=== PATIENT | male | born 1995 | race Caucasian/White ===

== ENCOUNTER 2021-05-21 11:35 | Inpatient (IN) | payer OTHER, BC ==
[~2021-05-21] VITALS: Ht 182.9 cm; Wt 112.8 kg
[2021-05-21 12:00] VITALS: BP 127/63
[2021-05-21] MEDS ORDERED: LISI20TA18 PO (12:06)
[2021-05-21] MEDS ORDERED: ESCITALOPRAM OX20 MG PO (12:29)
[2021-05-21] MEDS ORDERED: VANCOMYCIN PER PHARMACY MC PRN (12:30)
--- NOTE | 2021-05-21 12:30 | HP ---
DATE OF SERVICE: 05/21/2021 ADMIT DATE: 05/21/2021 HISTORY OF PRESENT ILLNESS: The patient is a 25-year-old male patient who was admitted directly from the urgent care clinic of [facility] where he presented with a complaint of pain around his perianal area. He was seen by his primary care physician, started him on oral Bactrim. He took it for 2 days; however, the pain and swelling has worsened and therefore, he was seen in the urgent clinic and I recommended to admit him directly to [facility] to consult the surgical team as he probably needs an incision and drainage of his perianal abscess. All his symptoms started about 3 days ago, specifically on and has been worsening. He denied any nausea or vomiting. Denied any chills, rigors or fever. PAST MEDICAL HISTORY: Significant for hypertension, depression and anxiety. PAST SURGICAL HISTORY: Unremarkable. ALLERGIES: QUESTIONABLE ALLERGY TO PENICILLIN. FAMILY HISTORY: Unremarkable. MEDICATIONS: He is currently on the following medication: He is on Lexapro 20 mg once a day, trazodone 100 mg at bedtime and lisinopril 20 mg once a day. SOCIAL HISTORY: He is single, has no children. He is vaping. He has not drank alcohol for almost a month and smokes marijuana occasionally, but does not use any other drugs. He is a Medicare Advantage Agent. REVIEW OF SYSTEMS: As per history of present illness. PHYSICAL EXAMINATION: GENERAL: On arrival, he looked well and was clearly in no apparent respiratory distress. No pallor, jaundice, cyanosis or thyromegaly. No jugular venous distention. No lower limb edema. VITAL SIGNS: Stable. HEAD, EYES, EARS, NOSE, AND THROAT: Normocephalic, atraumatic. NECK: Supple. HEART: Normal first and second heart sounds, no gallop or murmur. CHEST: Clear to auscultation, no crepitation or rhonchi. ABDOMEN: Distended, soft, nontender. NEUROLOGIC: He was grossly intact. EXTREMITIES: Examination of the perianal area showed that he had an abscess on the left side with marked tenderness and induration. PLAN: My plan is to start him on IV fluid, IV antibiotics and pain medication and consult the surgical team for incision and drainage. JUSTIN/VINICIUS DR: JUSTIN/deuce TID: [id number]
[2021-05-21 12:56] LABS: BASO # 0.1 x10^3/uL (0.0-0.2); BASO % 1 % (0-3); EOS % 0 % (0-3); HEMATOCRIT 41.9 % (39.0-53.0); HEMOGLOBIN 14.4 g/dL (13.0-17.5); LYMPH # 1.9 x10^3/uL (1.0-4.8); LYMPH % 13 % (24-48); MEAN CORPUSCULAR HEMOGLOBIN 29 pg (25-35); MEAN CORPUSCULAR HGB CONC 34 g/dL (31-37); MEAN CORPUSCULAR VOLUME 84 fL (79-100); MONO # 1.2 x10^3/uL (0.0-1.1); MONO % 8 % (0-9); NEUT # 11.2 x10^3/uL (1.8-7.7); NEUT % 78 % (31-73); PLATELET COUNT 268 x10^3/uL (140-400); RED CELL DISTRIBUTION WIDTH 12.7 % (11.5-14.5); WHITE BLOOD COUNT 14.4 x10^3/uL (4.0-11.0)
[2021-05-21] MEDS ORDERED: VANCOMYCIN 2 GM in IV NORMAL SALINE 500ML BAG 500 ML IV ONE (13:00)
[2021-05-21] MEDS: IV RINGERS,LACTATED 1000ML 1,000 ML IV SCH ×2 (13:06→22:55)
[2021-05-21 13:07] LABS: CALCIUM 8.6 mg/dL (8.5-10.1); CREATININE 1.1 mg/dL (0.7-1.3); POTASSIUM 4.6 mmol/L (3.5-5.1)
[2021-05-21 13:09] LABS: ALBUMIN 3.7 g/dL (3.4-5.0); ALBUMIN/GLOBULIN RATIO 1.3 (1.0-1.7); TOTAL BILIRUBIN 0.6 mg/dL (0.2-1.0); TOTAL PROTEIN 6.5 g/dL (6.4-8.2)
[2021-05-21] MEDS ORDERED: CONTRAST GIVEN. MC PRN (13:30)
[2021-05-21] MEDS ORDERED: IOHEXOL 300 MG/ML 100ML VIAL. IV ONE (13:30)
[2021-05-21] MEDS ORDERED: MEROPENEM 1 GM in IV NORMAL SALINE 100ML 100 ML IV SCH (14:00)
[2021-05-21] MEDS: MORPHINE SULFATE 4 MG/ML INJ. IV PRN ×3 (14:16→23:12)
[2021-05-21] MEDS: ONDANSETRON PF 4 MG/2 ML VIAL. IVP PRN ×3 (14:16→22:55)
[2021-05-21] MEDS: CEFEPIME HCL IV Push 2 GM VIAL. IVP SCH ×2 (15:47→22:56)
--- NOTE | 2021-05-21 16:45 | PDOC2 ---
CONSULT Date of Consult Date of Consult DATE: 05/21/21 TIME: 16:42 Reason for Consult Reason for Consult: Gluteal pain cellulitis Referring Physician Referring Physician: Cristóbal Identification/Chief Complaint Chief Complaint Gluteal pain Source Source: Chart review, Patient History of Present Illness Reason for Visit: 25-year-old male with 3-day history of gluteal pain was seen by primary care started on Bactrim pain became worse was seen in urgent care and referred for admission for possible incision and drainage of perirectal abscess. Patient denies diabetes denies ever having a problem like this in the past no drainage from the area Past Medical History Cardiovascular: No pertinent hx Pulmonary: No pertinent hx GI: No pertinent hx Heme/Onc: No pertinent hx Hepatobiliary: No pertinent hx Psych: No pertinent hx Rheumatologic: No pertinent hx Infectious disease: No pertinent hx ENT: No pertinent hx Renal/: No pertinent hx Endocrine: No pertinent hx Dermatology: No pertinent hx Past Surgical History Past Surgical History: No pertinent history Family History Family History: No Significant Social History No ALCOHOL: rare Drugs: None Lives: with Family Current Medications Current Medications Current Medications Morphine Sulfate (Morphine Sulfate) 4 mg PRN Q4HRS PRN IV MODERATE TO SEVERE PAIN Last administered on 05/21/21at 14:16; Start 05/21/21 at 12:30 Ondansetron HCl (Zofran) 4 mg PRN Q4HRS PRN IVP NAUSEA/VOMITING Last administered on 05/21/21at 14:16; Start 05/21/21 at 12:30 Meropenem 1 gm/ Sodium Chloride 100 ml @ 200 mls/hr Q8HRS IV ; Start 05/21/21 at 14:00; Stop 05/21/21 at 13:16; Status DC Vancomycin HCl (Vanco Per Pharmacy) 1 each PRN DAILY PRN MC SEE COMMENTS; Start 05/21/21 at 12:30; Stop 05/21/21 at 13:16; Status DC Ringer's Solution 1,000 ml @ 100 mls/hr Q10H IV Last administered on 05/21/21at 13:06; Start 05/21/21 at 12:30 Vancomycin HCl 2 gm/Sodium Chloride 500 ml @ 250 mls/hr 1X ONCE IV Last administered on 05/21/21at 13:07; Start 05/21/21 at 13:00; Stop 05/21/21 at 13:16; Status DC Metronidazole 100 ml @ 100 mls/hr Q8HRS IV Last administered on 05/21/21at 14:14; Start 05/21/21 at 14:00 Cefepime HCl (Maxipime) 2 gm Q12HR IVP Last administered on 05/21/21at 15:47; Start 05/21/21 at 14:00 Iohexol (Omnipaque 300 Mg/ml) 75 ml 1X ONCE IV Last administered on 05/21/21at 13:30; Start 05/21/21 at 13:30; Stop 05/21/21 at 13:31; Status DC Info (CONTRAST GIVEN -- Rx MONITORING) 1 each PRN DAILY PRN MC SEE COMMENTS; Start 05/21/21 at 13:30; Stop 05/23/21 at 13:29 Fentanyl Citrate (Fentanyl 2ml Vial) 25 mcg PRN Q5MIN PRN IVP MILD PAIN 1-3; Start 05/22/21 at 06:00; Stop 05/23/21 at 05:59 Fentanyl Citrate (Fentanyl 2ml Vial) 50 mcg PRN Q5MIN PRN IVP MODERATE PAIN 4- 6; Start 05/22/21 at 06:00; Stop 05/23/21 at 05:59 Morphine Sulfate (Morphine Sulfate) 1 mg PRN Q10MIN PRN IVP SEVERE PAIN 7-10; Start 05/22/21 at 06:00; Stop 05/23/21 at 05:59 Ringer's Solution 1,000 ml @ 30 mls/hr Q24H IV ; Start 05/22/21 at 06:00; Sto p 05/22/21 at 17:59 Hydromorphone HCl (Dilaudid) 0.5 mg PRN Q10MIN PRN IVP SEVERE PAIN 7-10, 2nd CHOICE; Start 05/22/21 at 06:00; Stop 05/23/21 at 05:59; Status UNV Prochlorperazine Edisylate (Compazine) 5 mg PACU PRN PRN IVP NAUSEA, MRX1; Start 05/22/21 at 06:00; Stop 05/23/21 at 05:59; Status UNV Active Scripts Active Reported Escitalopram Oxalate 20 Mg Tablet 1 Tab PO DAILY Lisinopril 20 Mg Tablet 1 Tab PO DAILY Allergies Allergies: Coded Allergies: Penicillins (Verified Allergy, Mild, Hives, 05/21/21) ROS Genitourinary: YES Pain (Buttocks) Physical Exam General: Alert, Oriented X3, Cooperative, mild distress HEENT: Atraumatic, PERRLA, EOMI Lungs: Clear to auscultation, Normal air movement Heart: Regular rate, No murmurs Abdomen: Normal bowel sounds, Soft, No tenderness, Other (Rectal exam shows some edema tenderness. Perirectal left side no fluctuance) Extremities: No edema Skin: No significant lesion Neuro: Normal speech Vitals VITALS Vital Signs Date Time Temp Pulse Resp B/P (MAP) Pulse Ox O2 Delivery O2 Flow Rate FiO2 05/21/21 14:46 Room Air 05/21/21 12:00 97.4 73 18 127/63 (84) 96 97.4 Labs Labs Laboratory Tests Test 05/21/21 12:30 White Blood Count 14.4 x10^3/uL (4.0-11.0) Red Blood Count 5.00 x10^6/uL (4.30-5.70) Hemoglobin 14.4 g/dL (13.0-17.5) Hematocrit 41.9 % (39.0-53.0) Mean Corpuscular Volume 84 fL (79-100) Mean Corpuscular Hemoglobin 29 pg (25-35) Mean Corpuscular Hemoglobin Concent 34 g/dL (31-37) Red Cell Distribution Width 12.7 % (11.5-14.5) Platelet Count 268 x10^3/uL (140-400) Neutrophils (%) (Auto) 78 % (31-73) Lymphocytes (%) (Auto) 13 % (24-48) Monocytes (%) (Auto) 8 % (0-9) Eosinophils (%) (Auto) 0 % (0-3) Basophils (%) (Auto) 1 % (0-3) Neutrophils # (Auto) 11.2 x10^3/uL (1.8-7.7) Lymphocytes # (Auto) 1.9 x10^3/uL (1.0-4.8) Monocytes # (Auto) 1.2 x10^3/uL (0.0-1.1) Eosinophils # (Auto) 0.0 x10^3/uL (0.0-0.7) Basophils # (Auto) 0.1 x10^3/uL (0.0-0.2) Sodium Level 137 mmol/L (136-145) Potassium Level 4.6 mmol/L (3.5-5.1) Chloride Level 101 mmol/L (98-107) Carbon Dioxide Level 27 mmol/L (21-32) Anion Gap 9 (6-14) Blood Urea Nitrogen 9 mg/dL (8-26) Creatinine 1.1 mg/dL (0.7-1.3) Estimated GFR (Cockcroft-Gault) 83.0 BUN/Creatinine Ratio 8 (6-20) Glucose Level 79 mg/dL (70-99) Calcium Level 8.6 mg/dL (8.5-10.1) Total Bilirubin 0.6 mg/dL (0.2-1.0) Aspartate Amino Transf (AST/SGOT) 16 U/L (15-37) Alanine Aminotransferase (ALT/SGPT) 42 U/L (16-63) Alkaline Phosphatase 91 U/L (46-116) Total Protein 6.5 g/dL (6.4-8.2) Albumin 3.7 g/dL (3.4-5.0) Albumin/Globulin Ratio 1.3 (1.0-1.7) Laboratory Tests Test 05/21/21 12:30 White Blood Count 14.4 x10^3/uL (4.0-11.0) Red Blood Count 5.00 x10^6/uL (4.30-5.70) Hemoglobin 14.4 g/dL (13.0-17.5) Hematocrit 41.9 % (39.0-53.0) Mean Corpuscular Volume 84 fL (79-100) Mean Corpuscular Hemoglobin 29 pg (25-35) Mean Corpuscular Hemoglobin Concent 34 g/dL (31-37) Red Cell Distribution Width 12.7 % (11.5-14.5) Platelet Count 268 x10^3/uL (140-400) Neutrophils (%) (Auto) 78 % (31-73) Lymphocytes (%) (Auto) 13 % (24-48) Monocytes (%) (Auto) 8 % (0-9) Eosinophils (%) (Auto) 0 % (0-3) Basophils (%) (Auto) 1 % (0-3) Neutrophils # (Auto) 11.2 x10^3/uL (1.8-7.7) Lymphocytes # (Auto) 1.9 x10^3/uL (1.0-4.8) Monocytes # (Auto) 1.2 x10^3/uL (0.0-1.1) Eosinophils # (Auto) 0.0 x10^3/uL (0.0-0.7) Basophils # (Auto) 0.1 x10^3/uL (0.0-0.2) Sodium Level 137 mmol/L (136-145) Potassium Level 4.6 mmol/L (3.5-5.1) Chloride Level 101 mmol/L (98-107) Carbon Dioxide Level 27 mmol/L (21-32) Anion Gap 9 (6-14) Blood Urea Nitrogen 9 mg/dL (8-26) Creatinine 1.1 mg/dL (0.7-1.3) Estimated GFR (Cockcroft-Gault) 83.0 BUN/Creatinine Ratio 8 (6-20) Glucose Level 79 mg/dL (70-99) Calcium Level 8.6 mg/dL (8.5-10.1) Total Bilirubin 0.6 mg/dL (0.2-1.0) Aspartate Amino Transf (AST/SGOT) 16 U/L (15-37) Alanine Aminotransferase (ALT/SGPT) 42 U/L (16-63) Alkaline Phosphatase 91 U/L (46-116) Total Protein 6.5 g/dL (6.4-8.2) Albumin 3.7 g/dL (3.4-5.0) Albumin/Globulin Ratio 1.3 (1.0-1.7) Images Images CT scan of the pelvis is pending Assessment/Plan Assessment/Plan Tentatively scheduled for incision and drainage of perirectal abscess tomorrow will follow up on CT results. SANTIAGO AREVALO MD May 21, 2021 16:45
--- NOTE | 2021-05-21 16:55 | RAD ---
CT scan of the abdomen and pelvis with contrast 05/21/2021 CLINICAL HISTORY: Perianal pain and swelling. TECHNIQUE: After the intravenous administration of 75 cc of Omnipaque 300 only, contiguous, 5 mm axia l sections were obtained through the abdomen and pelvis. One or more of the following individualized dose reduction techniques were utilized for this study: 1. Automated exposure control. 2. Adjustment of the mA and/or kV according to patient size. 3. Use of iterative reconstruction technique. FINDINGS: Images through the lung bases are within normal limits. The liver, spleen, pancreas, adrenal glands and kidneys are within normal limits. The abdominal aorta tapers normally. The gallbladder is well-distended. No free fluid or free air is seen within the abdomen. There is no evidence of bowel obstruction. The appendix is well-visualized a nd is within normal limits. Images through the pelvis demonstrate the urinary bladder distended with urine. Calcifications are se en in the prostate gland. No free fluid is noted. An oval-shaped slightly irregular fluid collection is seen extending inferiorly from the left aspect of the anal canal along the medial aspect of the le ft gluteal crease which measures 5.5 x 2.8 x 4.7 cm in craniocaudal, AP and transverse dimensions. Th is is consistent with a perianal abscess. The osseous structures are grossly intact. IMPRESSION: 5.5 cm left perirenal abscess as discussed above. Electronically signed by: Ashu Foss MD (05/21/2021 4:53 PM) [id number]
[2021-05-21] MEDS ORDERED: ACETAMINOPHEN 325 MG TABLET. PO PRN (19:00)
[2021-05-21 19:39] VITALS: BP 108/53
[2021-05-21 22:54] VITALS: BP 104/60
[2021-05-22 03:07] VITALS: BP 104/47
[2021-05-22] MEDS ORDERED: fentaNYL PF VIAL 100 MCG/2 ML VIAL IVP PRN ×2 (06:00)
[2021-05-22] MEDS ORDERED: PROCHLORPERAZINE 10 MG/2 ML VIAL. IVP PRN (06:00)
[2021-05-22] MEDS ORDERED: MORPHINE SULFATE 2 MG/ML INJ. IVP PRN (06:00)
[2021-05-22] MEDS ORDERED: IV RINGERS,LACTATED 1000ML 1,000 ML IV SCH (06:00)
[2021-05-22 07:00] VITALS: BP 118/49
[2021-05-22] MEDS: ONDANSETRON PF 4 MG/2 ML VIAL. IVP PRN ×3 (07:56→21:50)
[2021-05-22] MEDS: MORPHINE SULFATE 4 MG/ML INJ. IV PRN ×3 (08:07→21:51)
[2021-05-22] MEDS: IV RINGERS,LACTATED 1000ML 1,000 ML IV SCH ×2 (08:30→21:50)
[2021-05-22] MEDS ORDERED: ROCURONIUM 50 MG/5 ML VIAL. ONE (09:32)
[2021-05-22] MEDS ORDERED: NEOSTIGMINE METHYLSULFATE 5 MG/5 ML SYRINGE. ONE (09:33)
[2021-05-22] MEDS ORDERED: GLYCOPYRROLATE 1 MG/5 ML VIAL. ONE (09:34)
[2021-05-22] MEDS ORDERED: BUPIVACAINE-EPI 0.5% 30 ML VIAL KIT. ONE (09:55)
--- NOTE | 2021-05-22 09:57 | NUR ---
SW following. Discussed with RN, pt from home with mother, room air, NPO, rapid COVID-19 negative. Pt having surgery this morning. RN advised no SW needs at this time. SW will continue to follow.
[2021-05-22] MEDS ORDERED: SCOPOLAMINE 1.5MG PATCH. TD SCH (10:00)
[2021-05-22] MEDS ORDERED: PROPOFOL 10 MG/ML (20ML) VIAL. IV ONE (10:08)
[2021-05-22] MEDS ORDERED: fentaNYL PF VIAL 100 MCG/2 ML VIAL ONE (10:08)
[2021-05-22] MEDS ORDERED: LIDOCAINE 2% PF 5 ML VIAL. ONE (10:08)
[2021-05-22] MEDS ORDERED: MIDAZOLAM HCL/PF 2 MG/2 ML VIAL. ONE (10:09)
[2021-05-22] MEDS ORDERED: SUCCINYLCHOLINE 200 MG/10 ML VIAL. ONE (10:09)
--- NOTE | 2021-05-22 11:07 | PDOC4 ---
Operative Note Operative Note Date: May 22, 2021 at 1105 Preoperative diagnosis: Perirectal abscess Postoperative diagnosis: Same Procedure: Incision and drainage of perirectal abscess Surgeon: Amauri Specimen: Culture Dictation: Patient is 25-year-old male was mated to the hospital with perirectal abscess. The procedure of incision and drainage was explained to the patient detail risk-benefit were also discussed including bleeding infection alternatives this procedure also discussed with patient who seemed to understand and gave a verbal written consent to have procedure performed. Patient was taken operating room placed in the supine position general anesthesia was initiated once patient was sleeping intubated he was placed in lithotomy position and his perineum was prepped and draped usual sterile fashion using Betadine scrub and solution. Area over the abscess was injected with quarter percent Marcaine with epinephrine incision made with 11 blade scalpel cultures were taken of the purulent material expressed this was all suctioned from the wound wound was then irrigated with copious amounts normal saline and then packed with iodoform Nu Gauze half-inch. Wound was then dressed with ABD and mesh pants. Patient was placed in supine positioning awakened and extubated operating room taken recovery in stable condition all sponge instrument needle counts listed as correct estimated blood loss 10 mL. SANTIAGO AREVALO MD May 22, 2021 11:07
[2021-05-22] MEDS ORDERED: oxyCODONE/APAP 5/325 1 TAB TABLET PO PRN (11:15)
[2021-05-22] MEDS ORDERED: HYDROmorphone 2 MG/ML VIAL ONE (11:34)
[2021-05-22] MEDS: HYDROmorphone 2 MG/ML VIAL IVP PRN ×2 (11:38→11:53)
[2021-05-22 12:00] VITALS: BP 114/70
[2021-05-22] MEDS ORDERED: diphenhydrAMINE 50 MG/ML VIAL ONE (12:00)
[2021-05-22] MEDS ORDERED: diphenhydrAMINE 50 MG/ML VIAL IVP ONE (12:15)
[2021-05-22] MEDS: CEFEPIME HCL IV Push 2 GM VIAL. IVP SCH ×2 (12:39→21:51)
[2021-05-22 15:00] VITALS: BP 109/56
--- NOTE | 2021-05-22 16:51 | PN ---
DATE: 05/22/2021 SUBJECTIVE: The patient is resting flat in bed, in no apparent respiratory distress. He continued to complain of pain in the perianal area. He did spike his temperature up to 101.3. We did send blood for culture and sensitivity. He has a CT scan of the abdomen and pelvis, which showed that the patient has a 5.5 cm left perianal abscess along the medial aspect of the left gluteal crease, which measures 5.5 x 0.8 x 4.7, consistent with perianal abscess. He is apparently scheduled for incision and drainage today. PHYSICAL EXAMINATION: GENERAL: When I examined him, he looked well and was clearly in no apparent respiratory distress. No pallor, jaundice, cyanosis or thyromegaly. No jugular venous distention. No limb edema. VITAL SIGNS: His heart rate was 88, blood pressure was 118/49, temperature was 101.3, respiratory rate was 18 and oxygen saturation was 97% on room air. The rest of clinical exam stable. ASSESSMENT: Perianal abscess, scheduled for incision and drainage. PLAN: To continue with IV antibiotic. Continue with pain management. Continue with IV fluid. BEN/SHASHI DR: Nesha TID: [id number]
[2021-05-22] MEDS: metroNIDAZOLE 500 MG TABLET PO SCH ×2 (17:18→21:50)
[2021-05-22 19:00] VITALS: BP 124/71
[2021-05-22 23:00] VITALS: BP 119/61
[2021-05-23] MEDS: MORPHINE SULFATE 4 MG/ML INJ. IV PRN ×3 (02:50→15:10)
[2021-05-23 03:00] VITALS: BP 114/61
[2021-05-23] MEDS: metroNIDAZOLE 500 MG TABLET PO SCH ×2 (06:04→14:08)
[2021-05-23] MEDS: oxyCODONE/APAP 5/325 1 TAB TABLET PO PRN ×2 (06:05→16:17)
[2021-05-23] MEDS: IV RINGERS,LACTATED 1000ML 1,000 ML IV SCH ×2 (06:06→14:30)
[2021-05-23 07:00] VITALS: BP 98/36
[2021-05-23 07:16] LABS: BASO % 0 % (0-3); EOS % 0 % (0-3); HEMATOCRIT 40.6 % (39.0-53.0); HEMOGLOBIN 13.8 g/dL (13.0-17.5); LYMPH # 1.6 x10^3/uL (1.0-4.8); LYMPH % 12 % (24-48); MEAN CORPUSCULAR HEMOGLOBIN 29 pg (25-35); MEAN CORPUSCULAR HGB CONC 34 g/dL (31-37); MEAN CORPUSCULAR VOLUME 85 fL (79-100); MONO % 8 % (0-9); NEUT # 10.6 x10^3/uL (1.8-7.7); NEUT % 80 % (31-73); PLATELET COUNT 269 x10^3/uL (140-400); RED BLOOD COUNT 4.79 x10^6/uL (4.30-5.70); RED CELL DISTRIBUTION WIDTH 12.5 % (11.5-14.5); WHITE BLOOD COUNT 13.3 x10^3/uL (4.0-11.0)
[2021-05-23 07:40] LABS: ALBUMIN 3.2 g/dL (3.4-5.0); ALBUMIN/GLOBULIN RATIO 0.9 (1.0-1.7); CALCIUM 8.6 mg/dL (8.5-10.1); CREATININE 0.9 mg/dL (0.7-1.3); GFR 104.6; POTASSIUM 4.4 mmol/L (3.5-5.1); TOTAL BILIRUBIN 0.4 mg/dL (0.2-1.0); TOTAL PROTEIN 6.6 g/dL (6.4-8.2)
[2021-05-23] MEDS: ONDANSETRON PF 4 MG/2 ML VIAL. IVP PRN (09:42)
[2021-05-23] MEDS: CEFEPIME HCL IV Push 2 GM VIAL. IVP SCH (09:42)
--- NOTE | 2021-05-23 09:48 | PDOC ---
SURGICAL PROGRESS NOTE DATE: 05/23/21 TIME: 09:46 Subjective Patient feeling much better today minimal pain Vital Signs Vital Signs Date Time Temp Pulse Resp B/P (MAP) Pulse Ox O2 Delivery O2 Flow Rate FiO2 05/23/21 07:00 97.5 54 18 98/36 (56) 98 Room Air 97.5 05/22/21 11:32 6 I&O Intake and Output 05/23/21 07:00 Intake Total 3300 ml Output Total 10 ml Balance 3290 ml Intake Oral 650 ml IV Total 1450 ml Other 1200 ml Output Estimated Blood Loss 10 ml # Voids 3 PATIENT HAS A GUILLEN: No General: Alert, Oriented X3, Cooperative, No acute distress Skin: Other (Wound dressed and packed minimal drainage decreased erythema) Labs Laboratory Tests Test 05/21/21 12:30 05/21/21 18:30 05/23/21 06:30 White Blood Count 14.4 x10^3/uL (4.0-11.0) 13.3 x10^3/uL (4.0-11.0) Red Blood Count 5.00 x10^6/uL (4.30-5.70) 4.79 x10^6/uL (4.30-5.70) Hemoglobin 14.4 g/dL (13.0-17.5) 13.8 g/dL (13.0-17.5) Hematocrit 41.9 % (39.0-53.0) 40.6 % (39.0-53.0) Mean Corpuscular Volume 84 fL (79-100) 85 fL (79-100) Mean Corpuscular Hemoglobin 29 pg (25-35) 29 pg (25-35) Mean Corpuscular Hemoglobin Concent 34 g/dL (31-37) 34 g/dL (31-37) Red Cell Distribution Width 12.7 % (11.5-14.5) 12.5 % (11.5-14.5) Platelet Count 268 x10^3/uL (140-400) 269 x10^3/uL (140-400) Neutrophils (%) (Auto) 78 % (31-73) 80 % (31-73) Lymphocytes (%) (Auto) 13 % (24-48) 12 % (24-48) Monocytes (%) (Auto) 8 % (0-9) 8 % (0-9) Eosinophils (%) (Auto) 0 % (0-3) 0 % (0-3) Basophils (%) (Auto) 1 % (0-3) 0 % (0-3) Neutrophils # (Auto) 11.2 x10^3/uL (1.8-7.7) 10.6 x10^3/uL (1.8-7.7) Lymphocytes # (Auto) 1.9 x10^3/uL (1.0-4.8) 1.6 x10^3/uL (1.0-4.8) Monocytes # (Auto) 1.2 x10^3/uL (0.0-1.1) 1.0 x10^3/uL (0.0-1.1) Eosinophils # (Auto) 0.0 x10^3/uL (0.0-0.7) 0.0 x10^3/uL (0.0-0.7) Basophils # (Auto) 0.1 x10^3/uL (0.0-0.2) 0.0 x10^3/uL (0.0-0.2) Sodium Level 137 mmol/L (136-145) 138 mmol/L (136-145) Potassium Level 4.6 mmol/L (3.5-5.1) 4.4 mmol/L (3.5-5.1) Chloride Level 101 mmol/L (98-107) 103 mmol/L (98-107) Carbon Dioxide Level 27 mmol/L (21-32) 30 mmol/L (21-32) Anion Gap 9 (6-14) 5 (6-14) Blood Urea Nitrogen 9 mg/dL (8-26) 7 mg/dL (8-26) Creatinine 1.1 mg/dL (0.7-1.3) 0.9 mg/dL (0.7-1.3) Estimated GFR (Cockcroft-Gault) 83.0 104.6 BUN/Creatinine Ratio 8 (6-20) 8 (6-20) Glucose Level 79 mg/dL (70-99) 107 mg/dL (70-99) Calcium Level 8.6 mg/dL (8.5-10.1) 8.6 mg/dL (8.5-10.1) Total Bilirubin 0.6 mg/dL (0.2-1.0) 0.4 mg/dL (0.2-1.0) Aspartate Amino Transf (AST/SGOT) 16 U/L (15-37) 13 U/L (15-37) Alanine Aminotransferase (ALT/SGPT) 42 U/L (16-63) 31 U/L (16-63) Alkaline Phosphatase 91 U/L (46-116) 97 U/L (46-116) Total Protein 6.5 g/dL (6.4-8.2) 6.6 g/dL (6.4-8.2) Albumin 3.7 g/dL (3.4-5.0) 3.2 g/dL (3.4-5.0) Albumin/Globulin Ratio 1.3 (1.0-1.7) 0.9 (1.0-1.7) SARS-CoV-2 RNA (AMADA) Negative (Negative) SARS-CoV-2 Antigen (Rapid) Negative (NEGATIVE) Laboratory Tests Test 05/23/21 06:30 White Blood Count 13.3 x10^3/uL (4.0-11.0) Red Blood Count 4.79 x10^6/uL (4.30-5.70) Hemoglobin 13.8 g/dL (13.0-17.5) Hematocrit 40.6 % (39.0-53.0) Mean Corpuscular Volume 85 fL (79-100) Mean Corpuscular Hemoglobin 29 pg (25-35) Mean Corpuscular Hemoglobin Concent 34 g/dL (31-37) Red Cell Distribution Width 12.5 % (11.5-14.5) Platelet Count 269 x10^3/uL (140-400) Neutrophils (%) (Auto) 80 % (31-73) Lymphocytes (%) (Auto) 12 % (24-48) Monocytes (%) (Auto) 8 % (0-9) Eosinophils (%) (Auto) 0 % (0-3) Basophils (%) (Auto) 0 % (0-3) Neutrophils # (Auto) 10.6 x10^3/uL (1.8-7.7) Lymphocytes # (Auto) 1.6 x10^3/uL (1.0-4.8) Monocytes # (Auto) 1.0 x10^3/uL (0.0-1.1) Eosinophils # (Auto) 0.0 x10^3/uL (0.0-0.7) Basophils # (Auto) 0.0 x10^3/uL (0.0-0.2) Sodium Level 138 mmol/L (136-145) Potassium Level 4.4 mmol/L (3.5-5.1) Chloride Level 103 mmol/L (98-107) Carbon Dioxide Level 30 mmol/L (21-32) Anion Gap 5 (6-14) Blood Urea Nitrogen 7 mg/dL (8-26) Creatinine 0.9 mg/dL (0.7-1.3) Estimated GFR (Cockcroft-Gault) 104.6 BUN/Creatinine Ratio 8 (6-20) Glucose Level 107 mg/dL (70-99) Calcium Level 8.6 mg/dL (8.5-10.1) Total Bilirubin 0.4 mg/dL (0.2-1.0) Aspartate Amino Transf (AST/SGOT) 13 U/L (15-37) Alanine Aminotransferase (ALT/SGPT) 31 U/L (16-63) Alkaline Phosphatase 97 U/L (46-116) Total Protein 6.6 g/dL (6.4-8.2) Albumin 3.2 g/dL (3.4-5.0) Albumin/Globulin Ratio 0.9 (1.0-1.7) Assessment/Plan Status post incision and drainage perirectal abscess, local wound care. Stable from surgical standpoint discharge when able to perform wound care. Follow-up with surgery in 2-week Justicifation of Admission Dx: Justifications for Admission: Justification of Admission Dx: N/A SANTIAGO AREVALO MD May 23, 2021 09:48
--- NOTE | 2021-05-23 10:08 | NUR ---
SW following. Discussed with RN, pt from home with mother, room air, regular diet. COVID-19 negative. Pt had surgery 05/22. Pt wants his mother here to learn about wound care changes as she will be doing it at home. SW will continue to follow.
[2021-05-23] MEDS ORDERED: METR375C PO (10:54)
[2021-05-23] MEDS ORDERED: LEVO750T5 PO (10:54)
[2021-05-23] MEDS ORDERED: OXYC-325 PO (10:54)
[2021-05-23 11:00] VITALS: BP 115/52
--- NOTE | 2021-05-23 15:31 | NUR ---
Wound/Ostomy Care Wound Type/Assessment: Patient seen per wound care consult. See wound assessment. patient has abscess to left aniya-rectal which he had an I&D with Dr. Baugh on 05/22/21. Patient was premedicated prior to procedure. Packing removed. Wound cleansed, assessed, measured, and pictured. Patient in significant amount of pain, but did a great job tolerating wound care. Treatment Recommendations/Plan: Dr. Yee wrote for daily gauze packing. Wound repacked with 1/4" gauze packing strip, covered with ABD pad and mesh underwear. Education provided: Patient educated regarding wound care/abscess. Mother at bedside for teaching to redress the wound daily at home. Patient and mother taught dressing change and v/u, all questions and concerns answered for this patient. Offloading surface/device: N/A Recommended Referrals/Tests: Patient to follow up with Dr. Baugh in two weeks. Patient can also follow up in the wound clinic if he or his mother decides. Patient given wound clinic information . Discharge Recommendations for dressings: Continue as above. Patient given supplies. Bed lowered and call light in reach. Patient to discharge today following wound care.
--- NOTE | 2021-05-23 15:49 | PN ---
DATE: 05/23/2021 SUBJECTIVE: The patient is resting, slightly propped up in bed, in no apparent distress, awake, alert. On questioning him, he stated that his pain is much better now. Has had no headache. No fever. The pain is much less when walking as he underwent incision and drainage of his perirectal abscess yesterday successfully. PHYSICAL EXAMINATION: GENERAL: When I examined him, he looked well and was clearly in no apparent respiratory distress. No pallor, jaundice, cyanosis or thyromegaly. No jugular venous distention. No lower limb edema. VITAL SIGNS: His heart rate was 54, blood pressure was 98/36, temperature was 97.5, respiratory rate was 18 and oxygen saturation of 98%. Rest of the exam is stable. ASSESSMENT: Perianal abscess, status post incision and drainage. PLAN: To continue with IV antibiotic. Continue with pain management. If the surgeons are okay with him to be discharged. We will switch him to oral Augmentin and discharge home. SHREE DR: Nesha TID: [id number]
--- NOTE | 2021-05-23 16:18 | NUR ---
pt discharging home with mother. discharge instructions completed, verbalized understanding. no other needs. pt ambulated off unit with Kimmy TJEEDA.
[2021-05-23] MEDS ORDERED: LACTOBACILLUS RHAMNOSUS GG 1 CAPSULE. PO SCH (21:00)
== END 2021-05-23 16:20 | disposition home or self-care (01) | DRG 346 ==
LOC: 4 NORTH 11:35
PROVIDERS: ADMIT Internal Medicine; ATTEND Internal Medicine
PROC: 0D9P0ZZ Drainage of Rectum, Open Approach (ICD-10-PCS; principal; 2021-05-22 10:45)
DX: K61.2 Anorectal abscess (principal); I10 Essential (primary) hypertension; F32.A Depression, unspecified; F41.9 Anxiety disorder, unspecified; Z20.822 Contact with and (suspected) exposure to COVID-19; Z88.0 Allergy status to penicillin
CPT/HCPCS: 36415; 74177; 80053; 85025; 87040; 87071; 87075; 87076; 87077; 87186; 87426; A4930; A6266; J0330; J0692; J1170; J1200; J2250; J2270; J2405; J2704; J2710; J3010; J3370; J3490; J7040; J7120; Q9967; U0003; U0005; G0378